=== PATIENT | female | born 2000 | race Caucasian/White ===

== ENCOUNTER 2020-12-06 05:28 | Emergency (ER) | payer BC ==
[2020-12-09] MEDS ORDERED: PROT40 PO (12:40)
[2020-12-09] MEDS ORDERED: AVIANE PO (12:40)
[2020-12-09] MEDS ORDERED: P20 PO (12:40)
== END 2020-12-06 05:58 | disposition left against medical advice (07) ==
LOC: ER 05:28
DX: Z53.21 Procedure and treatment not carried out due to patient leaving prior to being seen by health care provider (principal)

== ENCOUNTER → 2020-12-08 | Outpatient (CLI) | payer BC ==
[~2020-12-08] MED LIST: AVIANE PO; BARIUM SULFATE 176 GM SUSP.RECON ONE; P20 PO; PROT40 PO
[2020-12-08 11:30] LABS: BASOPHILS % 0.4 % (0.0-2.0); EOSINOPHILS % 0.1 % (0.0-5.0); HEMATOCRIT. 44.6 % (36.0-48.0); HEMOGLOBIN. 15.1 g/dL (12.0-16.0); LYMPHOCYTES % 30.6 % (20.0-50.0); MEAN CORPUSCULAR HEMOGLOBIN 27.5 pg (28.0-32.0); MEAN CORPUSCULAR VOLUME 81.3 fL (81.0-99.0); MEAN PLATELET VOLUME 10.7 fl (7.4-10.4); MONOCYTES % 6.5 % (2.0-8.0); NEUTROPHILS % 62.4 % (40.0-76.0); PLATELET 207 x1000/uL (130-400); RED BLOOD CELL COUNT 5.49 mill/uL (4.2-5.4); RED CELL DISTRIBUTION WIDTH 14.1 % (11.6-14.6)
[2020-12-08 11:44] LABS: CHLORIDE 107 mEq/L (98-107)
[2020-12-08 11:52] LABS: TOTAL IRON BINDING CAPACITY 378 ug/dL (250-450)
[2020-12-08 11:54] LABS: B-HCG QUANTITATIVE < 1 mIU/mL (<3); T4 FREE 1.41 ng/dL (0.76-1.46)
[2020-12-08 12:07] LABS: FOLIC ACID (FOLATE) SERUM 17.8 ng/mL (>5.38)
[2020-12-08 14:01] LABS: AMYLASE 56 IU/L (25-115)
== END | disposition home or self-care (01) ==
LOC: RAD 09:53
PROVIDERS: ATTEND Internal Medicine Gastroenterology
DX: Z20.822 Contact with and (suspected) exposure to COVID-19 (principal)
CPT/HCPCS: 36415; 74230; 80053; 82150; 82607; 82728; 82746; 83540; 83550; 83615; 83690; 84439; 84443; 84702; 85025; 85044; 87426; Z7610

== ENCOUNTER → 2020-12-09 | Day surgery (SDC) | payer BC ==
[~2020-12-09] VITALS: Ht 165.1 cm; Wt 88.5 kg
[~2020-12-09] MED LIST changes: -BARIUM SULFATE 176 GM SUSP.RECON ONE; +LACTATED RINGERS 1,000 ML IV SCH; +MIDAZOLAM HCL 2 MG/2 ML VIAL ONE; +PROPOFOL 200MG/20ML VIAL IV ONE; +SUCCINYLCHOLINE CHLORIDE 200MG/10ML IV ONE
== END | disposition home or self-care (01) ==
LOC: OR 09:09
PROVIDERS: ATTEND Internal Medicine Gastroenterology
DX: R13.10 Dysphagia, unspecified (principal); K31.7 Polyp of stomach and duodenum; K29.50 Unspecified chronic gastritis without bleeding; K31.89 Other diseases of stomach and duodenum; K21.9 Gastro-esophageal reflux disease without esophagitis; Z79.899 Other long term (current) drug therapy; Z98.890 Other specified postprocedural states
CPT/HCPCS: 43239; 88305; J0330; J2250; J2704

== ENCOUNTER → 2022-07-28 | Outpatient (CLI) | payer BC ==
[~2022-07-28] MED LIST changes: -LACTATED RINGERS 1,000 ML IV SCH; -MIDAZOLAM HCL 2 MG/2 ML VIAL ONE; -PROPOFOL 200MG/20ML VIAL IV ONE; -SUCCINYLCHOLINE CHLORIDE 200MG/10ML IV ONE
== END | disposition home or self-care (01) ==
LOC: US 08:24
PROVIDERS: ATTEND Internal Medicine Gastroenterology
DX: K80.20 Calculus of gallbladder without cholecystitis without obstruction (principal); R10.9 Unspecified abdominal pain; R16.0 Hepatomegaly, not elsewhere classified; K76.0 Fatty (change of) liver, not elsewhere classified
CPT/HCPCS: 76700